=== PATIENT | male | born 1985 | race Caucasian/White ===

== ENCOUNTER 2019-07-08 07:56 | Emergency (ER) | payer MEDICAID ==
[~2019-07-08] VITALS: Ht 180.3 cm; Wt 68.0 kg
--- NOTE | 2019-07-08 08:05 | NUR ---
[id number], from the street, c/o chest sharp pain since yesterday. Patient a/ox4, breathing even and unlabored, no sob noted, ambulatory with steady gait. Attached to the night monitor.
--- NOTE | 2019-07-08 08:17 | NUR ---
urine sample sent to lab.
[2019-07-08 08:26] LABS: APPEARANCE,URINE Clear (CLEAR); BILIRUBIN,URINE SMALL (NEGATIVE); BLOOD, URINE Negative Ery/uL (NEGATIVE); COLOR,URINE Yellow (YELLOW); KETONES,URINE 15 (NEGATIVE); LEUKOCYTE ESTERASE ,URINE Negative (NEGATIVE); NITRITE, URINE Negative (NEGATIVE); PH,URINE 5.5 (5.0-8.0); PROTEIN,URINE Negative (NEGATIVE); UGLUCOSE Negative (NEGATIVE)
[2019-07-08 08:26] LABS: BASOPHILS % (AUTO) 0.5 % (0.0-2.0); EOSINOPHILS % (AUTO) 1.5 % (0.0-6.0); HEMATOCRIT 40 % (39-51); HEMOGLOBIN 13.3 g/dL (13.5-17.5); LYMPHOCYTES # (AUTO) 1.1 /CMM (0.8-4.8); LYMPHOCYTES % (AUTO) 15.3 % (20.0-44.0); MEAN CORPUSCULAR HGB CONC 33 g/dl (31.0-36.0); MEAN CORPUSCULAR VOLUME 91 fL (80-96); MONOCYTES # (AUTO) 0.6 /CMM (0.1-1.30); MONOCYTES % (AUTO) 7.7 % (2.0-12.0); NEUTROPHILS # (AUTO) 5.5 /CMM (1.8-8.9); PLATELET COUNT (AUTO) 313 /CMM (150-450); RED BLOOD CELL COUNT(AUTO) 4.38 MIL/uL (4.5-6.0); WHITE BLOOD COUNT (AUTO) 7.3 K/uL (4.3-11.0)
[2019-07-08 08:27] LABS: BACTERIA,URINE Few /HPF (None Seen); RBC,URINE 0-2 /HPF (0-2); SQUAMOUS EPITHELIAL CELL,UR Few /HPF (None Seen); WBC,URINE 0-2 /HPF (0-3)
[2019-07-08 08:31] LABS: CARBON DIOXIDE 31 mmol/L (21-32); CHLORIDE 105 mmol/L (98-107); CREATININE 0.8 mg/dL (0.6-1.3); GLUCOSE 102 mg/dL (74-106); POTASSIUM 3.8 mmol/L (3.5-5.1); SODIUM SERUM 141 mmol/L (136-145); UREA NITROGEN, BLOOD 16 mg/dL (7-18)
[2019-07-08 08:37] LABS: ALANINE AMINOTRANSFERASE 22 U/L (12-78); ALBUMIN 3.7 g/dL (3.4-5.0); ALCOHOL, BLOOD < 3 mg/dL (0-0); ALKALINE PHOSPHATASE 65 U/L (46-116); ASPARTATE AMINOTRANSFERASE 19 U/L (15-37); BILIRUBIN,DIRECT 0.1 mg/dL (0.0-0.2); BILIRUBIN,TOTAL 0.2 mg/dL (0.2-1.0); SALICYLATE 3.6 mg/dL (2.8-20.0); TOTAL PROTEIN, SERUM 7.1 g/dL (6.4-8.2)
[2019-07-08 08:40] LABS: ACETAMINOPHEN 0 ug/ml (10-30)
[2019-07-08 08:59] VITALS: BP 124/65
--- NOTE | 2019-07-08 09:14 | NUR ---
Patient eloped from facility. ER MD notified.
== END 2019-07-08 09:15 | disposition left against medical advice (07) ==
LOC: ER 07:57
DX: R07.89 Other chest pain (principal)
CPT/HCPCS: 36415; 71045; 80048; 80076; 80305; 80307; 80329; 81001; 84484; 85025; 93005; 99285; G0480; 81000-TC

== ENCOUNTER 2019-07-08 15:19 | Emergency (ER) | payer MEDICAID ==
[~2019-07-08] VITALS: Ht 180.3 cm; Wt 68.0 kg
--- NOTE | 2019-07-08 15:35 | NUR ---
BIB [facility],CALLED 911 AT A PUBLIC PHONE FOR CHEST PAIN,TENDER ON PALPATION,EKG NSR, NO MEDS GIVEN OR PIV ESTABLISHED. ATTACHED TO THE DIRECTOR [employer]. NO DISTRESS NOTED.
--- NOTE | 2019-07-08 16:14 | NUR ---
PATIENT CLEARED BY DR. FERRARI. OFFERED FOOD, AND TAP CARD, PATIENT HAS ADEQUATE CLOTHING, Patient given written and verbal discharge instructions. Patient verbalizes understanding of instructions. Patient is ambulatory with steady gait. Refuses offer of skilled nursing placement. Patient given list of available shelters in surrounding area.
[2019-07-08 16:18] VITALS: BP 122/65
== END 2019-07-08 16:19 | disposition home or self-care (01) ==
LOC: ER 15:20
DX: R07.89 Other chest pain (principal)